=== PATIENT | female | born 1945 | race Caucasian/White ===

== ENCOUNTER 2019-08-07 07:55 | Day surgery (SDC) | payer MEDICARE ==
[~2019-08-07] VITALS: Ht 162.6 cm; Wt 66.9 kg
[~2019-08-07 07:55] MED LIST: ACET325; Advil200 M1 PO; CALCAVITDA; Daily Multiple1 EACH PO; FIORICET 50-301 EACH PO; Florical Capsu1 EACH; IBUP200; Milk Thistle150 MG
[2019-08-07] MEDS ORDERED: Esgic Tablet1 EACH (08:43)
[2019-08-07] MEDS ORDERED: Voltaren100 GM (08:43)
--- NOTE | 2019-08-07 09:01 | NUR ---
08/07/19 0901 JENNIFER CALVIN 1 IV ATTEMPT VEIN BLEW IN RH 2 IV ATTEMPT SUCCESSFUL IN RAC
--- NOTE | 2019-08-07 09:41 | NUR ---
08/07/19 0941 Sally Flores ROBINUL 0.2MG IV GIVEN PER DR. BOWDEN, PT. HAD A FEW PAUSES WHILE ADVANCING SCOPE. NO FURTHER PAUSES AFTER ROBINUL GIVEN.
== END 2019-08-07 13:19 | disposition home or self-care (01) ==
LOC: ORSCSDS 07:55
PROVIDERS: Surgery
PROC: 0DJD8ZZ Inspection of Lower Intestinal Tract, Via Natural or Artificial Opening Endoscopic (ICD-10-PCS; principal; 2019-08-07 09:15)
DX: Z12.11 Encounter for screening for malignant neoplasm of colon (principal); Z86.010 Personal history of colon polyps; M79.7 Fibromyalgia
CPT/HCPCS: J2704; J7120

== ENCOUNTER → 2020-11-04 | Outpatient (CLI) | payer MEDICARE ==
[~2020-11-04] MED LIST changes: +Esgic Tablet1 EACH; +Voltaren100 GM
== END ==
LOC: LAB 15:57 → LAB SHORT 15:57
DX: R30.9 Painful micturition, unspecified (principal)
CPT/HCPCS: 87077; 87086; 87186

== ENCOUNTER → 2020-11-25 | Outpatient (CLI) | payer MEDICARE | END | disposition home or self-care (01) | LOC: LAB SHORT 14:45 → LAB 14:45 | DX: R30.0 Dysuria (principal) | CPT/HCPCS: 87086 ==

== ENCOUNTER 2025-03-27 11:54 | Day surgery (SDC) | payer MEDICARE, OTHER ==
[~2025-03-27] VITALS: Ht 160 cm; Wt 66.5 kg
[2025-03-27] VITALS (38 sets, daily range): BP systolic 94–155; BP diastolic 60–111
[~2025-03-27 11:54] MED LIST changes: +Atropine Sulfate 0.4 MG/ML 20ML VIAL IV ONE
--- NOTE | 2025-03-27 12:18 | NUR ---
Ambulatory in Day SurgeryPre-Op teaching done. Pt verbalizes understanding. History, Chart, Medications and Allergies reviewed before start of procedure.Patient confirms NPO status and agrees with scheduled surgery. Patient States Post-Procedure ride home has been arranged.
[2025-03-27] MEDS ORDERED: EUTHYROX50 MCG (12:23)
[2025-03-27] MEDS ORDERED: PRAVASTATIN SOD10 MG (12:25)
[2025-03-27] MEDS ORDERED: ASPI81CH (12:27)
--- NOTE | 2025-03-27 14:17 | NUR ---
03/27/25 1417 Carlos Enrique Breaux CONFIRMED AND REVIEWED H&P, MEDCICATIONS, ALLERGIES, MEDICAL HISTORY, RESPIRATORY HISTORY, VITAL SIGNS, 3-LEAD EKG, CONSENTS, AND PHYSICIAN ORDERS. PATIENT CONFIRMS NPO STATUS AND AGREES WITH SCHEDULED PROCEDURE. MONITOR INTACT WITH CONTINUOUS PULSE OXIMETRY, CAPNOGRAPHY, 3-LEAD EKG, INTERMITTENT BP. SUPPLEMENTAL O2 TO BE TITRATED THROUGHOUT PROCEDURE TO MAINTAIN O2 SATURATION ABOVE 90%. PATIENT DETERMINED TO BE ASA APPROPRIATE FOR PROPOFOL SEDATION PRIOR TO START OF PROCEDURE BY DR. GLASGOW.
--- NOTE | 2025-03-27 15:47 | NUR ---
Discharge instructions reviewed with patient. Patient verbalizes understanding. Copy given to patient to take home. Patient States Post-Procedure ride home has been arranged. Discharged via wheelchair to private car for ride home.
== END 2025-03-27 23:00 | disposition home or self-care (01) ==
LOC: ORSCMMR 11:54 → ORD 13:15 → ORSCMMR 23:00
PROVIDERS: Family Medicine
PROC: 3E0H8KZ Introduction of Other Diagnostic Substance into Lower GI, Via Natural or Artificial Opening Endoscopic (ICD-10-PCS; principal; 2025-03-27 13:15)
PROC: 0DBL8ZX Excision of Transverse Colon, Via Natural or Artificial Opening Endoscopic, Diagnostic (ICD-10-PCS; principal; 2025-03-27 13:15)
PROC: 0DBN8ZX Excision of Sigmoid Colon, Via Natural or Artificial Opening Endoscopic, Diagnostic (ICD-10-PCS; principal; 2025-03-27 13:15)
DX: Z12.11 Encounter for screening for malignant neoplasm of colon (principal); D12.3 Benign neoplasm of transverse colon; D12.5 Benign neoplasm of sigmoid colon; K64.4 Residual hemorrhoidal skin tags; K64.8 Other hemorrhoids; R19.5 Other fecal abnormalities; Z86.0100 Personal history of colon polyps, unspecified; E78.5 Hyperlipidemia, unspecified; Z85.3 Personal history of malignant neoplasm of breast; Z79.899 Other long term (current) drug therapy; Z87.891 Personal history of nicotine dependence
CPT/HCPCS: 88305; J2704; J7120

== ENCOUNTER → 2025-04-16 | Outpatient (CLI) | payer MEDICARE, OTHER ==
[~2025-04-16] MED LIST changes: +ASPI81CH; -Atropine Sulfate 0.4 MG/ML 20ML VIAL IV ONE; +EUTHYROX50 MCG; +PRAVASTATIN SOD10 MG
[2025-04-16 15:21] LABS: BASOPHILS ABSOLUTE AUTO 0.01 K/mm3 (0.00-0.23); BASOPHILS PERCENT AUTO 0 % (0-2); EOSINOPHILS ABSOLUTE AUTO 0.20 K/mm3 (0.00-0.68); EOSINOPHILS PERCENT AUTO 5 % (0-6); Hematocrit 38.2 % (33.0-51.0); Hemoglobin 13.2 g/dL (11.5-16.0); IMMATURE GRAN ABSOLUTE AUTO 0.00 K/mm3 (0.00-0.10); IMMATURE GRAN PERCENT AUTO 0 % (0-1); LYMPHOCYTES ABSOLUTE AUTO 1.33 K/mm3 (0.84-5.20); LYMPHOCYTES PERCENT AUTO 30 % (21-46); MONOCYTES ABSOLUTE AUTO 0.43 K/mm3 (0.16-1.47); MONOCYTES PERCENT AUTO 10 % (4-13); Mean Corpuscular HGB Conc 34.6 g/dL (31.5-36.5); Mean Corpuscular Volume 96 fL (80-100); NEUTROPHILS ABSOLUTE AUTO 2.41 K/mm3 (1.96-9.15); NEUTROPHILS PERCENT AUTO 55 % (41-73); NRBC ABSOLUTE 0.00 K/mm3 (0.00-0.02); NRBC Auto 0.0 /100 WBC (0.0-0.2); Platelet Count 186 K/mm3 (150-400); RDW Coefficient Variation 13.8 % (11.7-14.2); RDW Standard Deviation 48.7 fL (35.1-46.3)
[2025-04-16 16:57] LABS: Ferritin, Serum 304.0 ng/mL (8-252); Total Iron Binding Capacity 247.0 ug/dL (250-450)
== END ==
LOC: LAB 13:42 → LAB SHORT 13:42
PROVIDERS: Internal Medicine Hematology & Oncology
DX: E61.1 Iron deficiency (principal)
CPT/HCPCS: 82728; 83540; 83550; 85025